=== PATIENT | male | born 1950 | race Caucasian/White ===

== ENCOUNTER → 2020-01-30 | Outpatient (CLI) | payer MEDICARE ==
[~2020-01-30] MED LIST: REGADENOSON 0.4 MG/5 ML SYRINGE ONE
== END | disposition home or self-care (01) ==
LOC: CFH 12:39
PROVIDERS: ATTEND Internal Medicine Cardiovascular Disease
DX: I49.3 Ventricular premature depolarization (principal); I25.10 Atherosclerotic heart disease of native coronary artery without angina pectoris; I10 Essential (primary) hypertension
CPT/HCPCS: 78452; 93017; A9502; J2785

== ENCOUNTER 2020-10-19 13:33 | Outpatient (CLI) | payer MEDICARE | END 2020-10-19 23:59 | disposition home or self-care (01) | LOC: CFH 13:33 | PROVIDERS: ATTEND Registered Nurse | DX: Z12.2 Encounter for screening for malignant neoplasm of respiratory organs (principal); I71.4 Abdominal aortic aneurysm, without rupture; I25.10 Atherosclerotic heart disease of native coronary artery without angina pectoris; J98.11 Atelectasis; Z87.891 Personal history of nicotine dependence | CPT/HCPCS: 71271 ==